=== PATIENT | male | born 1985 | race Caucasian/White ===

== ENCOUNTER 2016-12-22 16:13 | Emergency (ER) | payer OTHER ==
[~2016-12-22] VITALS: Ht 180.3 cm; Wt 105.8 kg
[2016-12-22 19:08] VITALS: BP 132/87
== END 2016-12-22 19:08 | disposition home or self-care (01) ==
LOC: ED 16:13
DX: N39.0 Urinary tract infection, site not specified (principal)
CPT/HCPCS: 87491; 87591

== ENCOUNTER 2017-02-28 13:55 | Emergency (ER) | payer SELFPAY ==
[~2017-02-28] VITALS: Ht 180.3 cm; Wt 106.6 kg
[2017-02-28 14:05] VITALS: BP 139/92
== END 2017-02-28 14:51 | disposition home or self-care (01) ==
LOC: ED 13:55
DX: S05.01XA Injury of conjunctiva and corneal abrasion without foreign body, right eye, initial encounter (principal); X58.XXXA Exposure to other specified factors, initial encounter; Y93.89 Activity, other specified; Y92.89 Other specified places as the place of occurrence of the external cause; Y99.8 Other external cause status